=== PATIENT | female | born 1955 | race Caucasian/White ===

== ENCOUNTER 2020-09-24 06:22 | Day surgery (SDC) | payer MEDICARE, OTHER ==
[~2020-09-24] VITALS: Ht 167.6 cm; Wt 123.0 kg
[~2020-09-24 06:22] MED LIST: DIPHENHYDRAMINE50 M1 PO; IBUPROFEN200 MG PO; LISINOPRIL-HCT1 EACH PO; LISINOPRIL20 MG PO; MULTIVITAMINS1 EAC7 PO; NORCO 10-325 T1 EACH PO; ULTRAM50 MG PO; VITAMIN B122500 MCG PO; VITAMIN D1000 UNI1 PO
--- NOTE | 2020-09-24 08:11 | NUR ---
09/24/20 0811 Elin Batista 0808 PATIENT ARRIVES TO PACU AWAKE BUT DROWSY. RESP EVEN AND UNLABORED, NC AT 2L TURNED OFF ON ARRIVAL TO PACU. PATIENT PASSING GAS. RESTING WITH EYES CLOSED WHEN NOT STIMULATED.
--- NOTE | 2020-09-25 07:11 | OR ---
[facility] [address], [place] [address] Signed DATE OF OPERATION: 09/24/2020 SURGEON: Alexander Gaxiola MD PREOPERATIVE DIAGNOSIS: Guaiac-positive stool in December 2018. POSTOPERATIVE DIAGNOSES: 1. Minimal internal and external hemorrhoids. 2. 3 mm polyp at 60 cm. 3. 4 mm polyp at 40 cm. PROCEDURE: Colonoscopy with hot biopsy. ESTIMATED BLOOD LOSS: None. INDICATIONS: Aracelis is a 65-year-old female, asked to see me for her initial colonoscopy. In December 2018, she had a positive Cologuard test. We came into the COVID pandemic and so she put it off. She presents now for her colonoscopy lower GI complaints. There is no family history of colon cancer or polyps. Her has been through colonoscopy and so they are somewhat familiar with this process. I had met with her in the office and I gave her a pamphlet on colonoscopy. She understands there is risk including, but not limited to gas bloating, crampy abdominal pain, bleeding, perforation requiring surgery, and missed diagnosis. She also understands the need for IV conscious sedation. She had expressed understanding and wished to proceed. PROCEDURE NOTE: Aracelis was taken into our endoscopy suite and placed in the left lateral decubitus position. She was given a total of 5 mg of Versed and 150 mcg of fentanyl to cover the case. A digital rectal exam was performed and she has very minimal external hemorrhoid tissue. She had good sphincter tone. No masses. The adult colonoscope was introduced and advanced all around into the cecum under direct visualization of the camera. It took a little extra sedation, abdominal compression in order to advance the scope down into the cecum itself. Her prep was excellent. We could easily see the appendiceal orifice and ileocecal valve. The scope was then slowly withdrawn. The two polyps mentioned above were easily removed with the help of hot biopsy forceps. There was no diverticulosis. The rectum was unremarkable. Upon retroflexion of scope, she has very Electronically Signed By: ALEXANDER GAXIOLA MD 09/25/20 0711 PATIENT NAME: ARACELIS LEIGH OPERATIVE REPORT DATE OF : 51 REPORT #: [id number] PHYSICIAN: ALEXANDER GAXIOLA MD PCP: Wild Galvez DO REPORT IS CONFIDENTIAL AND NOT TO BE RELEASED WITHOUT AUTHORIZATION [facility] [address] [place] [id number] Signed minimal internal hemorrhoid tissue. After this, the gas was suctioned out and the colonoscope removed. Aracelis tolerated the procedure quite well. RECOMMENDATIONS: I will see Aracelis back in my office in the next few weeks to review her results. MD DARRELL Cornelius/INA /[id number] cc: MD Wild Cornelius DO Copies: ALEXANDER GAXIOLA MD, Jonas H DO ~ Electronically Signed By: ALEXANDER GAXIOLA MD 09/25/20 0711 PATIENT NAME: ARACELIS LEIGH OPERATIVE REPORT DATE OF : 51 REPORT #: [id number] PHYSICIAN: ALEXANDER GAXIOLA MD PCP: Wild Galvez DO REPORT IS CONFIDENTIAL AND NOT TO BE RELEASED WITHOUT AUTHORIZATION
== END 2020-09-24 08:40 | disposition home or self-care (01) ==
LOC: OPS 06:22 → DS 06:22 → OPS 07:00
PROVIDERS: ATTEND Colon & Rectal Surgery
PROC: 0DBE8ZX Excision of Large Intestine, Via Natural or Artificial Opening Endoscopic, Diagnostic (ICD-10-PCS; principal; 2020-09-24 07:00)
DX: D12.5 Benign neoplasm of sigmoid colon (principal); K64.8 Other hemorrhoids; K64.4 Residual hemorrhoidal skin tags; I10 Essential (primary) hypertension; R73.03 Prediabetes; E66.9 Obesity, unspecified; Z68.42 Body mass index [BMI] 45.0-49.9, adult; Z87.891 Personal history of nicotine dependence
CPT/HCPCS: 88305; 99153; G0500; J2250; J3010; J7121